=== PATIENT | female | born 1970 | race Caucasian/White ===

== ENCOUNTER 2021-04-18 15:40 | Outpatient (CLI) | payer BC | END 2021-04-18 15:41 | disposition home or self-care (01) | LOC: NAV RAD 15:40 | PROVIDERS: ATTEND Internal Medicine | DX: R05 Cough (principal) | CPT/HCPCS: 71046 ==

== ENCOUNTER 2022-08-02 12:28 | Emergency (ER) | payer BC, MEDICAID | END 2022-08-02 13:25 | disposition home or self-care (01) | LOC: NAV ERS 12:28 | DX: M06.9 Rheumatoid arthritis, unspecified (principal); F17.290 Nicotine dependence, other tobacco product, uncomplicated | CPT/HCPCS: 99283 ==